=== PATIENT | female | born 1945 | race Caucasian/White ===

== ENCOUNTER → 2020-11-20 | Outpatient (CLI) | payer MEDICARE, BC ==
[2020-11-20 14:10] LABS: BASO # 0.05 (0.02-0.10); EOS # 0.27 (0.04-0.40); EOS % 3.3 % (1.0-5.0); HEMATOCRIT 27.9 % (37.0-47.0); HEMOGLOBIN 9.2 g/dL (12.5-16.0); MEAN CELL VOLUME 97 fl (78-100); MEAN CORPUSCULAR HEMOGLOBIN 32 pg (27-31); MEAN CORPUSCULAR HGB CONC 33 g/dL (33-37); MEAN PLATELET VOLUME 7.9 fl (7.4-10.4); NEU # 5.74 (1.40-6.50); RED BLOOD COUNT 2.88 M/mm3 (4.10-5.30); RED CELL DISTRIBUTION WIDTH 12.8 % (11.5-14.5); WHITE BLOOD COUNT 8.2 K/mm3 (4.8-10.8)
[2020-11-20 14:28] LABS: ALBUMIN 3.1 g/dL (3.4-4.8)
[2020-11-20 14:29] LABS: CALCIUM 9.2 mg/dL (8.3-10.5)
[2020-11-20 14:30] LABS: TOTAL PROTEIN 5.8 g/dL (6.2-8.1)
[2020-11-20 14:32] LABS: TOTAL BILIRUBIN 0.6 mg/dL (0.2-1.2)
[2020-11-20 14:35] LABS: POTASSIUM 2.9 mmol/L (3.5-5.1)
[2020-11-20 14:43] LABS: PLATELET COUNT 797 K/mm3 (130-400)
== END ==
LOC: LAB 13:52
PROVIDERS: Family Medicine
DX: E87.1 Hypo-osmolality and hyponatremia (principal); D69.6 Thrombocytopenia, unspecified

== ENCOUNTER → 2020-11-23 | Outpatient (CLI) | payer MEDICARE, BC ==
[2020-11-23 11:18] LABS: POTASSIUM 3.8 mmol/L (3.5-5.1)
[2020-11-23 11:19] LABS: CALCIUM 9.1 mg/dL (8.3-10.5)
== END ==
LOC: LAB 10:52
PROVIDERS: Family Medicine
DX: E87.6 Hypokalemia (principal)